=== PATIENT | male | born 1990 | race Caucasian/White ===

== ENCOUNTER 2021-02-15 11:38 | Emergency (ER) | payer OTHER ==
--- NOTE | 2021-02-15 11:40 | ERPHSYRPT ---
- History of Present Illness Time Seen by Provider: 02/15/21 11:40 Historian: patient Exam Limitations: no limitations Physician History: This is a 31-year-old white male who states he had a history of kidney stones in the past and presents with gross hematuria that started this morning. Patient began having some abdominal pain that is general in location and severe aching. The pain worsened this morning and the gross hematuria began this morning. Patient has no bleeding or clotting disorders. He is not on any anticoagulation therapy. He does not take aspirin or ibuprofen on a regular basis. He has had nausea and vomiting but no diarrhea. He is never had anything like this before. Timing/Duration: yesterday Quality: aching Abdominal Pain Onset Location: generalized abdomen Pain Radiation: no radiation Severity of Pain-Max: moderate Severity of Pain-Current: moderate Modifying Factors: Improves With: vomiting Associated Symptoms: nausea, vomiting, No chest pain, No fever/chills, No loss of appetite, No shortness of breath Previous symptoms: no prior history Allergies/Adverse Reactions: amoxicillin Allergy (Verified 02/15/21 11:45) Penicillins Allergy (Verified 02/15/21 11:45) Home Medications: Gabapentin 300 mg [Neurontin 300 mg] 1 tab PO DAILY 02/15/21 [History] Lorazepam 1 mg [Ativan 1 MG] 1 tab PO DAILY 02/15/21 [History] Travel Risk - International Travel Have you traveled outside of the country in past 3 weeks: No - Coronavirus Screening Are you exhibiting any of the following symptoms?: No Close contact with a COVID-19 positive Pt in past 14-21 Days: No - Review of Systems Constitutional: No Symptoms Eyes: No Symptoms Ears, Nose, & Throat: No Symptoms Respiratory: No Symptoms Cardiac: No Symptoms Abdominal/Gastrointestinal: Abdominal Pain, Nausea, Vomiting, No Diarrhea Genitourinary Symptoms: Hematuria Musculoskeletal: No Symptoms Skin: No Symptoms Neurological: No Symptoms Psychological: No Symptoms Endocrine: No Symptoms Hematologic/Lymphatic: No Symptoms Immunological/Allergic: No Symptoms All Other Systems: Reviewed and Negative - Past Medical History Pertinent Past Medical History: Yes - Past Surgical History Past Surgical History: Yes - Nursing Vital Signs Nursing Vital Signs: Initial Vital Signs Temperature 98.1 F 02/15/21 11:47 Pulse Rate 116 H 02/15/21 11:47 Respiratory Rate 18 02/15/21 11:47 Blood Pressure 156/97 02/15/21 11:47 O2 Sat by Pulse Oximetry 95 02/15/21 11:47 Pain Scale Pain Intensity 3 - Physical Exam General Appearance: mild distress, alert, anxiety Eye Exam: PERRL/EOMI, eyes nml inspection Ears, Nose, Throat Exam: normal ENT inspection, moist mucous membranes Neck Exam: normal inspection, non-tender, supple, full range of motion Respiratory Exam: normal breath sounds, lungs clear, airway intact, No chest tenderness, No respiratory distress Cardiovascular Exam: regular rate/rhythm, normal heart sounds, normal peripheral pulses Gastrointestinal/Abdomen Exam: soft, normal bowel sounds, tenderness, guarding, No rebound Rectal Exam: not done Back Exam: normal inspection, normal range of motion, No CVA tenderness, No vertebral tenderness Extremity Exam: normal inspection, normal range of motion, pelvis stable Neurologic Exam: alert, oriented x 3, cooperative, ip network architect II-XII nml as tested, normal mood/affect, nml cerebellar function, nml station & gait, sensation nml Skin Exam: normal color, warm, dry Lymphatic Exam: No adenopathy SpO2 Interpretation: normal O2 Delivery: Room Air - Course Nursing assessment & vital signs reviewed: Yes Ordered Tests: Active Orders 24 hr Category Date Time Status IV Insertion STAT Care 02/15/21 11:48 Active ABDOMEN AND PELVIS W/0 CONTRAS [CT] Stat Exams 02/15/21 11:48 Completed AMYLASE Stat Lab 02/15/21 11:50 Completed CBC W DIFF Stat Lab 02/15/21 11:50 Completed CMP Stat Lab 02/15/21 11:50 Completed CULTURE,URINE Stat Lab 02/15/21 11:53 Received LIPASE Stat Lab 02/15/21 11:50 Completed Lactic Acid Stat Lab 02/15/21 11:47 Completed UA W/RFX UR CULTURE Stat Lab 02/15/21 11:53 Completed Urine Triage Profile Stat Lab 02/15/21 11:53 Completed Medication Summary Discontinued Medications Generic Name Dose Route Start Last Admin Trade Name Freq PRN Reason Stop Dose Admin Hydromorphone HCl 1 mg 02/15/21 11:48 02/15/21 11:56 Hydromorphone 1 Mg/Ml Injection IV 02/15/21 11:49 1 mg STAT ONE Administration Hydromorphone HCl Confirm 02/15/21 11:54 Hydromorphone 1 Mg/Ml Injection Administered 02/15/21 11:55 Dose 1 mg .ROUTE .STK-MED ONE Sodium Chloride 1,000 mls @ 999 mls/hr 02/15/21 11:48 02/15/21 12:57 Sodium Chloride 0.9% 1000 Ml IV 02/15/21 12:48 Infused .Q1H1M STA Infusion Sodium Chloride Confirm 02/15/21 11:54 Sodium Chloride 0.9% 1000 Ml Administered 02/15/21 11:55 Dose 1,000 mls @ ud .ROUTE .STK-MED ONE Ketorolac Tromethamine 30 mg 02/15/21 12:54 02/15/21 12:56 Toradol 30 Mg Injection IV 02/15/21 12:55 30 mg STAT ONE Administration Ketorolac Tromethamine Confirm 02/15/21 12:55 Toradol 30 Mg Injection Administered 02/15/21 12:56 Dose 30 mg .ROUTE .STK-MED ONE Ondansetron HCl 4 mg 02/15/21 11:48 02/15/21 11:56 Zofran 4 Mg/2 Ml Vial IV 02/15/21 11:49 4 mg STAT ONE Administration Ondansetron HCl Confirm 02/15/21 11:54 Zofran 4 Mg/2 Ml Vial Administered 02/15/21 11:55 Dose 4 mg .ROUTE .STK-MED ONE Trimethoprim/Sulfamethoxazole 1 tab 02/15/21 13:11 02/15/21 13:14 Bactrim Ds Tablet PO 02/15/21 13:12 1 tab STAT ONE Administration Trimethoprim/Sulfamethoxazole Confirm 02/15/21 13:13 Bactrim Ds Tablet Administered 02/15/21 13:14 Dose 1 tab PO .STK-MED ONE Lab/Rad Data: Laboratory Result Diagrams 02/15/21 11:50 02/15/21 11:50 Laboratory Results 02/15/21 02/15/21 02/15/21 Range/Units 11:53 11:53 11:50 WBC (4.0-10.5) K/mm3 RBC (4.1-5.6) M/mm3 Hgb (12.5-18.0) gm/dl Hct (42-50) % MCV (78-100) fl MCH (26-32) pg MCHC (32-36) g/dl RDW (11.5-14.0) % Plt Count (150-450) K/mm3 MPV (7.5-11.0) fl Gran % (36.0-66.0) % Eos # (Auto) (0-0.5) Absolute Lymphs (auto) (1.0-4.6) Absolute Monos (auto) (0.0-1.3) Lymphocytes % (24.0-44.0) % Monocytes % (0.0-12.0) % Eosinophils % (0.00-5.0) % Basophils % (0.0-0.4) % Absolute Granulocytes (1.4-6.9) Basophils # (0-0.4) Sodium 139 (137-145) mmol/L Potassium 3.5 (3.5-5.1) mmol/L Chloride 100 (98-107) mmol/L Carbon Dioxide 29 (22-30) mmol/L Anion Gap 14.5 (5-15) MEQ/L BUN 10 (9-20) mg/dL Creatinine 0.80 (0.66-1.25) mg/dL Estimated GFR > 60.0 ML/MIN Glucose 117 H (74-106) mg/dL Lactic Acid (0.4-2.0) Calcium 10.0 (8.4-10.2) mg/dL Total Bilirubin 0.60 (0.2-1.3) mg/dL AST 25 (17-59) U/L ALT 19 (0-50) U/L Alkaline Phosphatase 64 (38-126) U/L Serum Total Protein 7.9 (6.3-8.2) g/dL Albumin 5.0 (3.5-5.0) g/dL Amylase 59 (30-110) U/L Lipase 22 L (23-300) U/L Urine Color BROWN (YELLOW) Urine Appearance CLOUDY (CLEAR) Urine pH 6.0 (5-6) Ur Specific Reyno 1.018 (1.005-1.025) Urine Protein 100 (Negative) Urine Ketones NEGATIVE (NEGATIVE) Urine Blood LARGE (0-5) Lee/ul Urine Nitrite NEGATIVE (NEGATIVE) Urine Bilirubin NEGATIVE (NEGATIVE) Urine Urobilinogen 2 (0-1) mg/dL Ur Leukocyte Esterase NEGATIVE (NEGATIVE) Urine WBC (Auto) >100 (0-5) /HPF Urine RBC (Auto) >101 (0-2) /HPF Urine Bacteria (Auto) MODERATE (NEGATIVE) /HPF Urine Mucus (Auto) MANY (NEGATIVE) /HPF Urine Culture Reflexed YES (NO) Urine Glucose NEGATIVE (NEGATIVE) mg/dL Urine Opiates Level POSITIVE (NEGATIVE) Ur Methadone NEGATIVE (NEGATIVE) Urine Barbiturates NEGATIVE (NEGATIVE) Ur Phencyclidine (PCP) NEGATIVE (NEGATIVE) Urine Amphetamine POSITIVE (NEGATIVE) U Benzodiazepine Level POSITIVE (NEGATIVE) Urine Cocaine NEGATIVE (NEGATIVE) Urine Marijuana (THC) NEGATIVE (NEGATIVE) 02/15/21 02/15/21 Range/Units 11:50 11:47 WBC 13.0 H (4.0-10.5) K/mm3 RBC 6.03 H (4.1-5.6) M/mm3 Hgb 18.3 H (12.5-18.0) gm/dl Hct 53.5 H (42-50) % MCV 88.7 (78-100) fl MCH 30.3 (26-32) pg MCHC 34.2 (32-36) g/dl RDW 13.3 (11.5-14.0) % Plt Count 275 (150-450) K/mm3 MPV 10.1 (7.5-11.0) fl Gran % 67.0 H (36.0-66.0) % Eos # (Auto) 0.13 (0-0.5) Absolute Lymphs (auto) 2.77 (1.0-4.6) Absolute Monos (auto) 1.33 H (0.0-1.3) Lymphocytes % 21.3 L (24.0-44.0) % Monocytes % 10.2 (0.0-12.0) % Eosinophils % 1.0 (0.00-5.0) % Basophils % 0.5 (0.0-0.4) % Absolute Granulocytes 8.72 H (1.4-6.9) Basophils # 0.06 (0-0.4) Sodium (137-145) mmol/L Potassium (3.5-5.1) mmol/L Chloride (98-107) mmol/L Carbon Dioxide (22-30) mmol/L Anion Gap (5-15) MEQ/L BUN (9-20) mg/dL Creatinine (0.66-1.25) mg/dL Estimated GFR ML/MIN Glucose (74-106) mg/dL Lactic Acid 1.1 (0.4-2.0) Calcium (8.4-10.2) mg/dL Total Bilirubin (0.2-1.3) mg/dL AST (17-59) U/L ALT (0-50) U/L Alkaline Phosphatase (38-126) U/L Serum Total Protein (6.3-8.2) g/dL Albumin (3.5-5.0) g/dL Amylase (30-110) U/L Lipase (23-300) U/L Urine Color (YELLOW) Urine Appearance (CLEAR) Urine pH (5-6) Ur Specific Reyno (1.005-1.025) Urine Protein (Negative) Urine Ketones (NEGATIVE) Urine Blood (0-5) Lee/ul Urine Nitrite (NEGATIVE) Urine Bilirubin (NEGATIVE) Urine Urobilinogen (0-1) mg/dL Ur Leukocyte Esterase (NEGATIVE) Urine WBC (Auto) (0-5) /HPF Urine RBC (Auto) (0-2) /HPF Urine Bacteria (Auto) (NEGATIVE) /HPF Urine Mucus (Auto) (NEGATIVE) /HPF Urine Culture Reflexed (NO) Urine Glucose (NEGATIVE) mg/dL Urine Opiates Level (NEGATIVE) Ur Methadone (NEGATIVE) Urine Barbiturates (NEGATIVE) Ur Phencyclidine (PCP) (NEGATIVE) Urine Amphetamine (NEGATIVE) U Benzodiazepine Level (NEGATIVE) Urine Cocaine (NEGATIVE) Urine Marijuana (THC) (NEGATIVE) - Progress Progress: improved, pain not gone completely, re-examined Progress Note: 02/15/21 13:14 CAT scan of the abdomen pelvis without contrast shows mild hydronephrosis on the left side with a 1 cm UPJ calculus causing partial obstruction. 02/15/21 13:26 Patient was informed that his urine showed opiates (the specimen was taken before we gave him any opiates), benzodiazepines (patient is prescribed this) and methamphetamines. Patient only admits to marijuana use. Medical decision making: This patient has a distal left ureteral calculus. There is mild hydronephrosis present. However the size of the calculus measured 1 cm. There is a concern he may not pass this calculus without intervention from a urologist patient has seen Dr. Rosario out of [facility]. We called Dr. Rosario's office and this patient can be seen today at 3 PM. Counseled pt/family regarding: lab results, diagnosis, need for follow-up, rad results - Departure Departure Disposition: Home Clinical Impression: Left ureteral calculus, UTI (urinary tract infection) Condition: Stable Critical Care Time: No Referrals: LILIANA SMITH [Primary Care Provider] - Additional Instructions: Drink plenty of fluids. Take your medication as prescribed. Follow-up with your primary care physician and urologist for further management. Prescriptions: Ondansetron ODT 4 MG [Zofran Odt 4 mg] 4 mg PO Q6H PRN PRN #10 tab.rapdis PRN Reason: Vomiting Hydrocodone/APAP 5/325 [[place] 5/325 mg] 1 each PO Q8H PRN PRN #6 tablet MDD 3 PRN Reason: Pain Smz/Tmp Ds Tablet [Bactrim Ds Tablet] 1 udtab PO BID #14 tablet
[2021-02-15] MEDS ORDERED: Zofran 4 MG/2 ML VIAL IV ONE (11:48)
[2021-02-15] MEDS ORDERED: Hydromorphone 1 mg/ml Injection IV ONE (11:48)
[2021-02-15] MEDS ORDERED: Sodium Chloride 0.9% 1000 ML 1,000 ML IV STA (11:48)
[2021-02-15] MEDS ORDERED: Hydromorphone 1 mg/ml Injection ONE (11:54)
[2021-02-15] MEDS ORDERED: Zofran 4 MG/2 ML VIAL ONE (11:54)
[2021-02-15] MEDS ORDERED: Sodium Chloride 0.9% 1000 ML 1,000 ML ONE (11:54)
[2021-02-15 12:00] LABS: Absolute Neutrophil Ct (ANC) 8.72 (1.4-6.9); BASOPHIL % 0.5 % (0.0-0.4); Basophil (Absolute #) 0.06 (0-0.4); Eosinophil (Absolute #) 0.13 (0-0.5); Hematocrit 53.5 % (42-50); Hemoglobin 18.3 gm/dl (12.5-18.0); Lymphocyte (Absolute #) 2.77 (1.0-4.6); Lymphocytes % 21.3 % (24.0-44.0); Mean Cell Volume 88.7 fl (78-100); Mean Corpuscular Hemoglobin 30.3 pg (26-32); Mean Corpuscular Hgb Concent. 34.2 g/dl (32-36); Mean Platelet Volume 10.1 fl (7.5-11.0); Monocyte (Absolute #) 1.33 (0.0-1.3); Monocytes % 10.2 % (0.0-12.0); Platelet Count 275 K/mm3 (150-450); Red Blood Count 6.03 M/mm3 (4.1-5.6); Red Cell Distribution Width 13.3 % (11.5-14.0)
[2021-02-15 12:19] LABS: ALKALINE PHOSPHATASE 64 U/L (38-126); AMYLASE 59 U/L (30-110); ANION GAP 14.5 MEQ/L (5-15); BLOOD UREA NITROGEN 10 mg/dL (9-20); CHLORIDE 100 mmol/L (98-107); Carbon Dioxide 29 mmol/L (22-30); EST GLOMERULAR FILTRATION RATE > 60.0 ML/MIN; Glucose 117 mg/dL (74-106); LIPASE 22 U/L (23-300); Potassium 3.5 mmol/L (3.5-5.1); SGOT/AST 25 U/L (17-59); SGPT/ALT 19 U/L (0-50); SODIUM 139 mmol/L (137-145); Total Protein 7.9 g/dL (6.3-8.2)
[2021-02-15 12:19] LABS: Appearance CLOUDY (CLEAR); Bacteria MODERATE /HPF (NEGATIVE); Bilirubin NEGATIVE (NEGATIVE); Blood LARGE Ery/ul (0-5); Glucose NEGATIVE (NEGATIVE); Ketones NEGATIVE (NEGATIVE); Leukocyte Esterase NEGATIVE (NEGATIVE); Mucus MANY /HPF (NEGATIVE); Nitrite NEGATIVE (NEGATIVE); Protein,Urine Dip 100 (Negative); Specific Gravity 1.018 (1.005-1.025); Urobilinogen 2 mg/dL (0-1); WBC >100 /HPF (0-5)
[2021-02-15 12:24] LABS: RBC >101 /HPF (0-2)
[2021-02-15 12:33] LABS: Amphetamine,Urine POSITIVE (NEGATIVE); Barbiturate,Urine NEGATIVE (NEGATIVE); Benzodiazepine,Urine POSITIVE (NEGATIVE); Cocaine,Urine NEGATIVE (NEGATIVE); Methadone,Urine NEGATIVE (NEGATIVE); Opiate,Urine POSITIVE (NEGATIVE); PCP,Urine NEGATIVE (NEGATIVE); THC,Urine NEGATIVE (NEGATIVE)
--- NOTE | 2021-02-15 12:42 | XRAY ---
Indication: Right abdomen/flank pain. Hematuria. Multiple contiguous images obtained through the abdomen and pelvis without contrast using renal stone protocol. Comparison: None Lung bases demonstrates a few tiny right middle and left lower lobe calcified granulomas. No infiltrate or effusion. Heart not enlarged. There is a 1 cm left UPJ calculus with mild hydronephrosis. Additional 1 left renal and 2 right renal punctate calculi. Noncontrasted stomach and bowel loops appear nonobstructed. Normal appendix. No free fluid/air. Remaining liver, gallbladder, pancreas, spleen, adrenal glands, kidneys, ureters, bladder, and aorta are unremarkable for noncontrast exam. Osseous structures intact. No ventral or inguinal hernias. Impression: 1. 1 cm left UPJ calculus producing partial obstruction. Additional bilateral renal micro-calculi. 2. Incidental old granulomatous disease.
[2021-02-15] MEDS ORDERED: TORAdol 30 mg Injection IV ONE (12:54)
[2021-02-15] MEDS ORDERED: TORAdol 30 mg Injection ONE (12:55)
[2021-02-15] MEDS ORDERED: BACTRIM DS TABLET PO ONE ×2 (13:11→13:13)
[2021-02-15 13:17] VITALS: BP 132/74; PULSE 92; O2SAT 97
== END 2021-02-15 13:39 | disposition home or self-care (01) ==
LOC: ED 11:38
DX: N13.2 Hydronephrosis with renal and ureteral calculous obstruction (principal); N39.0 Urinary tract infection, site not specified
CPT/HCPCS: 36000; 36415; 74176; 80053; 80307; 81001; 82150; 83605; 83690; 85025; 87086; 96360; 96374; 96375; 99284; J1170; J1885; J2405; A9270-GY

== ENCOUNTER 2022-11-01 12:53 | Emergency (ER) | payer OTHER ==
[2022-11-01] MEDS ORDERED: Sodium Chloride 0.9% 1000 ML 1,000 ML IV STA ×2 (13:08→14:51)
[2022-11-01] MEDS ORDERED: TORAdol 30 mg Injection IV ONE (13:08)
[2022-11-01] MEDS ORDERED: Zofran 4 MG/2 ML VIAL IV ONE (13:08)
[2022-11-01] MEDS ORDERED: Sodium Chloride 0.9% 1000 ML 1,000 ML ONE ×2 (13:11→14:53)
[2022-11-01] MEDS ORDERED: Zofran 4 MG/2 ML VIAL ONE (13:11)
[2022-11-01] MEDS ORDERED: TORAdol 30 mg Injection ONE (13:11)
[2022-11-01 13:31] LABS: Absolute Neutrophil Ct (ANC) 10.52 x10^3/uL (1.4-6.9); BASOPHIL % 0.5 % (0.0-0.4); Basophil (Absolute #) 0.07 x10^3/uL (0-0.4); Eosinophil % 0.4 % (0.00-5.0); Eosinophil (Absolute #) 0.05 x10^3/uL (0-0.5); Hematocrit 48.8 % (42-50); Hemoglobin 17.2 g/dL (12.5-18.0); IMMATURE GRAN # 0.05 x10^3u/L (0.00-0.03); IMMATURE GRAN % 0.4 % (0.00-0.4); Lymphocyte (Absolute #) 1.83 x10^3/uL (1.0-4.6); Lymphocytes % 13.4 % (24.0-44.0); Mean Corpuscular Hgb Concent. 35.2 g/dL (32-36); Mean Platelet Volume 10.3 fL (7.5-11.0); Monocyte (Absolute #) 1.11 x10^3/uL (0.0-1.3); Monocytes % 8.1 % (0.0-12.0); Neutrophil % 77.2 % (36.0-66.0); Platelet Count 332 x10^3/uL (150-450); Red Blood Count 5.74 x10^6/uL (4.1-5.6); Red Cell Distribution Width 11.8 % (11.5-14.0); White Blood Count 13.6 x10^3/uL (4.0-10.5)
[2022-11-01 13:53] LABS: ALBUMIN 5.1 g/dL (3.5-5.0); ALKALINE PHOSPHATASE 63 U/L (38-126); ANION GAP 17.9 MEQ/L (5-15); BLOOD UREA NITROGEN 7 mg/dL (9-20); CHLORIDE 99 mmol/L (98-107); Carbon Dioxide 24 mmol/L (22-30); Creatinine 1 0.68 mg/dL (0.66-1.25); EST GLOMERULAR FILTRATION RATE > 60.0 ML/MIN; Glucose 118 mg/dL (74-106); LIPASE 37 U/L (23-300); Potassium 3.5 mmol/L (3.5-5.1); SGOT/AST 28 U/L (17-59); SGPT/ALT 18 U/L (0-50); SODIUM 138 mmol/L (137-145); Total Protein 7.9 g/dL (6.3-8.2)
--- NOTE | 2022-11-01 14:32 | XRAY ---
Indication: Left flank pain. History of kidney stones. Multiple contiguous axial images obtained through the abdomen and pelvis without contrast using renal stone protocol. Comparison: February 15, 2021 Lung bases again demonstrates a few calcified granulomas bilaterally. New mild bibasilar dependent atelectasis. Heart not enlarged. Posterior urinary bladder demonstrates new 3-4 mm midline calculus. Mild left sided hydronephrosis, mild left renal edema, and minimal left hydroureter favors recent passage of said calculus. Right kidney demonstrates 2 nonobstructing micro-calculi, largest 4 mm. Noncontrasted stomach and bowel loops nonobstructed with normal appendix. No free fluid/air. Remaining liver, gallbladder, pancreas, spleen, adrenal glands, kidneys, ureters, bladder, and aorta are unremarkable for noncontrast exam. Osseous structures intact. Impression: New 3-4 mm urinary bladder calculus. Left-sided hydronephrosis/hydroureter favors recent passage of calculus. 2 nonobstructing right renal micro-calculi.
--- NOTE | 2022-11-01 14:45 | ERPHSYRPT ---
- History of Present Illness Time Seen by Provider: 11/01/22 14:53 Historian: patient Exam Limitations: no limitations Patient Subjective Stated Complaint: pt here abd and flank pain to left side since 0830 this am . has not had bm for 2 weeks not Triage Nursing Assessment: pt alert, arrived per wc ,moaning and yelling out in pain holding left side of abd . uncooperative at times. unable to get a b/p, pt will not hold still. abd soft Physician History: Patient is a 32-year-old male presents to our ED for evaluation of left flank pain. Patient had acute onset of left flank pain started this morning at 8:30 AM. Pain has been ongoing. Pain described as an ache that is localized. Pain tends to radiate down to the groin area. No trauma. No fever. Patient currently on Suboxone. Patient states he has not had a bowel movement in 2 weeks. Symptoms are severe in intensity. No specific worsening improving fac tors. Patient denies history of the same. He voices no other complaints or concerns at this time. Portions of this note were created with voice recognition technology. There may be grammatical, spelling, punctuation or sound alike errors Timing/Duration: today Activities at Onset: none Quality: aching Abdominal Pain Onset Location: flank (Left flank) Pain Radiation: other (Pain radiates from left flank to left groin) Severity of Pain-Max: moderate Severity of Pain-Current: mild Modifying Factors: Improves With: nothing Associated Symptoms: nausea, vomiting Previous symptoms: no prior history Allergies/Adverse Reactions: amoxicillin Allergy (Verified 11/01/22 13:07) Penicillins Allergy (Verified 11/01/22 13:07) Home Medications: Buprenorphine HCl/Naloxone HCl [Buprenorphine-Nalox 8-2 mg Tab] 1 ea DAILY 11/01/22 [History] Quetiapine Fumarate 25 mg [Seroquel 25 MG] 25 mg PO DAILY 11/01/22 [History] Trazodone HCl 150 mg PO DAILY 11/01/22 [History] Hx Tetanus, Diphtheria Vaccination/Date Given: Yes Hx Influenza Vaccination/Date Given: No Hx Pneumococcal Vaccination/Date Given: No Immunizations Up to Date: Yes Travel Risk - International Travel Have you traveled outside of the country in past 3 weeks: No - Coronavirus Screening Are you exhibiting any of the following symptoms?: No Close contact with a COVID-19 positive Pt in past 14-21 Days: No - Vaccine Status Have you recieved a Covid-19 vaccination: No - Review of Systems Constitutional: No Symptoms, No Fever, No Chills Eyes: No Symptoms Ears, Nose, & Throat: No Symptoms Respiratory: No Symptoms, No Cough, No Dyspnea Cardiac: No Symptoms, No Chest Pain, No Edema, No Syncope Abdominal/Gastrointestinal: No Symptoms, No Abdominal Pain, No Nausea, No Vomiting, No Diarrhea Genitourinary Symptoms: No Symptoms, No Dysuria Musculoskeletal: No Symptoms, No Back Pain, No Neck Pain Skin: No Symptoms, No Rash Neurological: No Symptoms, No Dizziness, No Focal Weakness, No Sensory Changes Psychological: No Symptoms Endocrine: No Symptoms Hematologic/Lymphatic: No Symptoms Immunological/Allergic: No Symptoms All Other Systems: Reviewed and Negative - Past Medical History Pertinent Past Medical History: Yes Neurological History: No Pertinent History ENT History: No Pertinent History Cardiac History: No Pertinent History Respiratory History: No Pertinent History Endocrine Medical History: No Pertinent History Musculoskeletal History: No Pertinent History GI Medical History: No Pertinent History History: No Pertinent History Psycho-Social History: No Pertinent History Male Reproductive Disorders: No Pertinent History Other Medical History: hx of kidney stones - Past Surgical History Past Surgical History: Yes Neuro Surgical History: Other Cardiac: No Pertinent History Respiratory: No Pertinent History Gastrointestinal: No Pertinent History Genitourinary: No Pertinent History Musculoskeletal: No Pertinent History Male Surgical History: No Pertinent History Other Surgical History: brain surgery at 2 - Social History Smoking Status: Current every day smoker How long have you smoked: years Exposure to second hand smoke: Yes Drug Use: marijuana Patient Lives Alone: No - Nursing Vital Signs Nursing Vital Signs: Initial Vital Signs Temperature 96.4 F 11/01/22 13:10 Pulse Rate 61 11/01/22 13:10 Respiratory Rate 20 11/01/22 13:10 O2 Sat by Pulse Oximetry 95 11/01/22 13:10 Pain Scale Pain Intensity 7 - Physical Exam General Appearance: no apparent distress, alert Eye Exam: PERRL/EOMI, eyes nml inspection Ears, Nose, Throat Exam: normal ENT inspection, TMs normal, pharynx normal, moist mucous membranes Neck Exam: normal inspection, non-tender, supple, full range of motion Respiratory Exam: normal breath sounds, lungs clear, airway intact, No respiratory distress Cardiovascular Exam: regular rate/rhythm, normal heart sounds, normal peripheral pulses Gastrointestinal/Abdomen Exam: soft, normal bowel sounds, tenderness (Left flank pain. Left CVA tenderness.), No mass Back Exam: normal inspection, normal range of motion, No CVA tenderness, No vertebral tenderness Extremity Exam: normal inspection, normal range of motion, pelvis stable Neurologic Exam: alert, oriented x 3, cooperative, normal mood/affect, nml cerebellar function, sensation nml, No motor deficits Skin Exam: normal color, warm, dry SpO2 Interpretation: normal SpO2: 95 O2 Delivery: Room Air - Course Nursing assessment & vital signs reviewed: Yes - CT Exams Abdomen/Pelvis CT Interpretation: Tele-radiologist Report (Lung granuloma, urinary bladder calculus measuring 3 to 4 mm, left hydronephrosis, left hydroureter, left renal edema, right nephrolithiasis) Ordered Tests: Active Orders 24 hr Category Date Time Status IV Insertion STAT Care 11/01/22 13:08 Active NPO (ED) STAT Care 11/01/22 13:08 Active ABDOMEN AND PELVIS W/0 CONTRAS [CT] Stat Exams 11/01/22 13:09 Completed CBC W DIFF Stat Lab 11/01/22 13:08 Completed CMP Stat Lab 11/01/22 13:08 Completed CMP Stat Lab 11/01/22 15:06 Completed CULTURE,URINE Stat Lab 11/01/22 15:00 Received LIPASE Stat Lab 11/01/22 13:08 Completed Lactic Acid Stat Lab 11/01/22 13:08 Completed Lactic Acid Stat Lab 11/01/22 15:10 Completed Lactic Acid Stat Lab 11/01/22 15:29 Received UA W/RFX UR CULTURE Stat Lab 11/01/22 15:00 Completed Urine Triage Profile Stat Lab 11/01/22 15:00 Completed Medication Summary Discontinued Medications Generic Name Dose Route Start Last Admin Trade Name Freq PRN Reason Stop Dose Admin Sodium Chloride 1,000 mls @ 999 mls/hr 11/01/22 13:08 11/01/22 14:37 Sodium Chloride 0.9% 1000 Ml IV 11/01/22 14:08 Infused .Q1H1M STA Infusion Sodium Chloride Confirm 11/01/22 13:11 Sodium Chloride 0.9% 1000 Ml Administered 11/01/22 13:12 Dose 1,000 mls @ ud .ROUTE .STK-MED ONE Sodium Chloride 1,000 mls @ 999 mls/hr 11/01/22 14:51 11/01/22 15:57 Sodium Chloride 0.9% 1000 Ml IV 11/01/22 15:51 Infused .Q1H1M STA Infusion Sodium Chloride Confirm 11/01/22 14:53 Sodium Chloride 0.9% 1000 Ml Administered 11/01/22 14:54 Dose 1,000 mls @ ud .ROUTE .STK-MED ONE Ketamine HCl 7 mg 11/01/22 15:02 11/01/22 15:06 Ketamine Hcl 50 Mg/Ml IV 11/01/22 15:03 7 mg STAT ONE Administration Ketorolac Tromethamine 30 mg 11/01/22 13:08 11/01/22 13:13 Ketorolac Tromethamine 30 Mg/Ml Inj IV 11/01/22 13:09 30 mg STAT ONE Administration Ketorolac Tromethamine Confirm 11/01/22 13:11 Ketorolac Tromethamine 30 Mg/Ml Inj Administered 11/01/22 13:12 Dose 30 mg .ROUTE .STK-MED ONE Ondansetron HCl 4 mg 11/01/22 13:08 11/01/22 13:13 Ondansetron Hcl 4 Mg/2 Ml Vial IV 11/01/22 13:09 4 mg STAT ONE Administration Ondansetron HCl Confirm 11/01/22 13:11 Ondansetron Hcl 4 Mg/2 Ml Vial Administered 11/01/22 13:12 Dose 4 mg .ROUTE .STK-MED ONE Lab/Rad Data: Laboratory Result Diagrams 11/01/22 13:08 11/01/22 15:06 Laboratory Results 11/01/22 11/01/22 11/01/22 Range/Units 15:10 15:06 15:00 WBC (4.0-10.5) x10^3/uL RBC (4.1-5.6) x10^6/uL Hgb (12.5-18.0) g/dL Hct (42-50) % MCV (78-100) fL MCH (26-32) pg MCHC (32-36) g/dL RDW (11.5-14.0) % Plt Count (150-450) x10^3/uL MPV (7.5-11.0) fL Gran % (36.0-66.0) % Immature Gran % (Auto) (0.00-0.4) % Nucleat RBC Rel Count (0.00-0.1) % Eos # (Auto) (0-0.5) x10^3/uL Immature Gran # (Auto) (0.00-0.03) x10^3u/L Absolute Lymphs (auto) (1.0-4.6) x10^3/uL Absolute Monos (auto) (0.0-1.3) x10^3/uL Absolute Nucleated RBC (0.00-0.01) x10^3u/L Lymphocytes % (24.0-44.0) % Monocytes % (0.0-12.0) % Eosinophils % (0.00-5.0) % Basophils % (0.0-0.4) % Absolute Granulocytes (1.4-6.9) x10^3/uL Basophils # (0-0.4) x10^3/uL Sodium 139 (137-145) mmol/L Potassium 3.9 (3.5-5.1) mmol/L Chloride 104 (98-107) mmol/L Carbon Dioxide 25 (22-30) mmol/L Anion Gap 14.2 (5-15) MEQ/L BUN 6 L (9-20) mg/dL Creatinine 0.63 L (0.66-1.25) mg/dL Estimated GFR > 60.0 ML/MIN Glucose 102 (74-106) mg/dL Lactic Acid 1.0 (0.4-2.0) Calcium 8.8 (8.4-10.2) mg/dL Total Bilirubin 0.70 (0.2-1.3) mg/dL AST 24 (17-59) U/L ALT 14 (0-50) U/L Alkaline Phosphatase 49 (38-126) U/L Serum Total Protein 6.6 (6.3-8.2) g/dL Albumin 4.3 (3.5-5.0) g/dL Lipase (23-300) U/L Urine Color (Yellow) Urine Appearance (Clear) Urine pH (4.6-8.0) Ur Specific [place] (1.005-1.030) Urine Protein (Negative) Urine Glucose (UA) (Negative) mg/dL Urine Ketones (Negative) Urine Blood (Negative) Urine Nitrite (Negative) Urine Bilirubin (Negative) Urine Urobilinogen (0.2) mg/dL Ur Leukocyte Esterase (Negative) U Hyaline Cast (Auto) (0-2) /LPF Urine Microscopic RBC (0-5) /HPF Urine Microscopic WBC (0-5) /HPF Ur Epithelial Cells (None Seen) /HPF Urine Bacteria (None Seen) /HPF Urine Sperm (None Seen) /HPF Urine Culture Reflexed (NO) Urine Opiates Level NEGATIVE (NEGATIVE) Ur Methadone NEGATIVE (NEGATIVE) Urine Barbiturates NEGATIVE (NEGATIVE) Ur Phencyclidine (PCP) NEGATIVE (NEGATIVE) Urine Amphetamine POSITIVE (NEGATIVE) U Benzodiazepine Level NEGATIVE (NEGATIVE) Urine Cocaine NEGATIVE (NEGATIVE) Urine Marijuana (THC) NEGATIVE (NEGATIVE) 11/01/22 11/01/22 11/01/22 Range/Units 15:00 13:08 13:08 WBC (4.0-10.5) x10^3/uL RBC (4.1-5.6) x10^6/uL Hgb (12.5-18.0) g/dL Hct (42-50) % MCV (78-100) fL MCH (26-32) pg MCHC (32-36) g/dL RDW (11.5-14.0) % Plt Count (150-450) x10^3/uL MPV (7.5-11.0) fL Gran % (36.0-66.0) % Immature Gran % (Auto) (0.00-0.4) % Nucleat RBC Rel Count (0.00-0.1) % Eos # (Auto) (0-0.5) x10^3/uL Immature Gran # (Auto) (0.00-0.03) x10^3u/L Absolute Lymphs (auto) (1.0-4.6) x10^3/uL Absolute Monos (auto) (0.0-1.3) x10^3/uL Absolute Nucleated RBC (0.00-0.01) x10^3u/L Lymphocytes % (24.0-44.0) % Monocytes % (0.0-12.0) % Eosinophils % (0.00-5.0) % Basophils % (0.0-0.4) % Absolute Granulocytes (1.4-6.9) x10^3/uL Basophils # (0-0.4) x10^3/uL Sodium 138 (137-145) mmol/L Potassium 3.5 (3.5-5.1) mmol/L Chloride 99 (98-107) mmol/L Carbon Dioxide 24 (22-30) mmol/L Anion Gap 17.9 H (5-15) MEQ/L BUN 7 L (9-20) mg/dL Creatinine 0.68 (0.66-1.25) mg/dL Estimated GFR > 60.0 ML/MIN Glucose 118 H (74-106) mg/dL Lactic Acid 2.4 H (0.4-2.0) Calcium 10.0 (8.4-10.2) mg/dL Total Bilirubin 0.70 (0.2-1.3) mg/dL AST 28 (17-59) U/L ALT 18 (0-50) U/L Alkaline Phosphatase 63 (38-126) U/L Serum Total Protein 7.9 (6.3-8.2) g/dL Albumin 5.1 H (3.5-5.0) g/dL Lipase 37 (23-300) U/L Urine Color Yellow (Yellow) Urine Appearance Cloudy A (Clear) Urine pH 6.5 (4.6-8.0) Ur Specific [place] 1.010 (1.005-1.030) Urine Protein 30 (Negative) Urine Glucose (UA) Negative (Negative) mg/dL Urine Ketones 80 A (Negative) Urine Blood Large A (Negative) Urine Nitrite Negative (Negative) Urine Bilirubin Negative (Negative) Urine Urobilinogen 1.0 A (0.2) mg/dL Ur Leukocyte Esterase Negative (Negative) U Hyaline Cast (Auto) 3-5 A (0-2) /LPF Urine Microscopic RBC 21-50 A (0-5) /HPF Urine Microscopic WBC 0-2 (0-5) /HPF Ur Epithelial Cells None Seen (None Seen) /HPF Urine Bacteria None Seen (None Seen) /HPF Urine Sperm Moderate A (None Seen) /HPF Urine Culture Reflexed YES (NO) Urine Opiates Level (NEGATIVE) Ur Methadone (NEGATIVE) Urine Barbiturates (NEGATIVE) Ur Phencyclidine (PCP) (NEGATIVE) Urine Amphetamine (NEGATIVE) U Benzodiazepine Level (NEGATIVE) Urine Cocaine (NEGATIVE) Urine Marijuana (THC) (NEGATIVE) 11/01/22 Range/Units 13:08 WBC 13.6 H (4.0-10.5) x10^3/uL RBC 5.74 H (4.1-5.6) x10^6/uL Hgb 17.2 (12.5-18.0) g/dL Hct 48.8 (42-50) % MCV 85.0 (78-100) fL MCH 30.0 (26-32) pg MCHC 35.2 (32-36) g/dL RDW 11.8 (11.5-14.0) % Plt Count 332 (150-450) x10^3/uL MPV 10.3 (7.5-11.0) fL Gran % 77.2 H (36.0-66.0) % Immature Gran % (Auto) 0.4 (0.00-0.4) % Nucleat RBC Rel Count 0.0 (0.00-0.1) % Eos # (Auto) 0.05 (0-0.5) x10^3/uL Immature Gran # (Auto) 0.05 H (0.00-0.03) x10^3u/L Absolute Lymphs (auto) 1.83 (1.0-4.6) x10^3/uL Absolute Monos (auto) 1.11 (0.0-1.3) x10^3/uL Absolute Nucleated RBC 0.00 (0.00-0.01) x10^3u/L Lymphocytes % 13.4 L (24.0-44.0) % Monocytes % 8.1 (0.0-12.0) % Eosinophils % 0.4 (0.00-5.0) % Basophils % 0.5 (0.0-0.4) % Absolute Granulocytes 10.52 H (1.4-6.9) x10^3/uL Basophils # 0.07 (0-0.4) x10^3/uL Sodium (137-145) mmol/L Potassium (3.5-5.1) mmol/L Chloride (98-107) mmol/L Carbon Dioxide (22-30) mmol/L Anion Gap (5-15) MEQ/L BUN (9-20) mg/dL Creatinine (0.66-1.25) mg/dL Estimated GFR ML/MIN Glucose (74-106) mg/dL Lactic Acid (0.4-2.0) Calcium (8.4-10.2) mg/dL Total Bilirubin (0.2-1.3) mg/dL AST (17-59) U/L ALT (0-50) U/L Alkaline Phosphatase (38-126) U/L Serum Total Protein (6.3-8.2) g/dL Albumin (3.5-5.0) g/dL Lipase (23-300) U/L Urine Color (Yellow) Urine Appearance (Clear) Urine pH (4.6-8.0) Ur Specific [place] (1.005-1.030) Urine Protein (Negative) Urine Glucose (UA) (Negative) mg/dL Urine Ketones (Negative) Urine Blood (Negative) Urine Nitrite (Negative) Urine Bilirubin (Negative) Urine Urobilinogen (0.2) mg/dL Ur Leukocyte Esterase (Negative) U Hyaline Cast (Auto) (0-2) /LPF Urine Microscopic RBC (0-5) /HPF Urine Microscopic WBC (0-5) /HPF Ur Epithelial Cells (None Seen) /HPF Urine Bacteria (None Seen) /HPF Urine Sperm (None Seen) /HPF Urine Culture Reflexed (NO) Urine Opiates Level (NEGATIVE) Ur Methadone (NEGATIVE) Urine Barbiturates (NEGATIVE) Ur Phencyclidine (PCP) (NEGATIVE) Urine Amphetamine (NEGATIVE) U Benzodiazepine Level (NEGATIVE) Urine Cocaine (NEGATIVE) Urine Marijuana (THC) (NEGATIVE) - Progress Progress: improved Progress Note: Patient 32-year-old male presents emergency department for evaluation of left flank pain. Patient has a history of kidney stones. Patient presenting complaint is acute in onset. Complexity of complaint is moderate. Review of system reveals left flank pain and left CVA tenderness. Tests ordered include CT abdomen pelvis, CBC, CMP, lipase, lactic acid, stone an alysis, urinalysis, urine triage. Chemistry revealed a elevated anion gap acidosis. A repeat was performed to assure normalization. Lactic acid was elevated on the initial draw. A repeat was performed to assure normalization. Patient received Toradol for pain control. Patient then received ketamine for pain control. Patient is on Suboxone so we avoided opiate as a source for pain control. Patient received Zofran for nausea and vomiting. Patient received 2 L of IV fluids. CT scan revealed passage of a 3.4 mm stone. Patient had left-sided hydronephrosis left- sided hydroureter. Stone was sitting in patient's bladder. While in our ED patient passed the stone. Were able to collect the stone and forwarded to the lab/pathology for stone analysis. Results of our testing was used for medical decision making. Patient reassessed. He feels well. Patient ready for discharge. A pres cription for Toradol was forwarded to patient's pharmacy. Patient agrees to follow-up with his primary care doctor within 48 hours for reevaluation. Level of the M service provided was moderate. Complexity of the problem addressed was moderate. Complexity of data reviewed and analyzed is moderate. Risk of complication and/or risk of morbidity/mortality of patient management was moderate. No critical care time. Patient served as independent historian. Time spent during discharge is approximately 10 to 15 minutes. Patient voices no other complaints or concerns this time. Patient requesting discharge Portions of this note were created with voice recognition technology. There may be grammatical, spelling, punctuation or sound alike errors 11/01/22 16:53 Counseled pt/family regarding: lab results, diagnosis, need for follow-up, rad results - Departure Departure Disposition: Home Clinical Impression: Leukocytosis, High anion gap metabolic acidosis, Lactic acidosis, Nephrolithiasis, Hydroureter, Hydronephrosis, Urinary bladder calculus, Left renal edema, Amphetamine use Condition: Stable Critical Care Time: No Referrals: LILIANA SMITH [Primary Care Provider] - Follow up/PCP as directed Additional Instructions: Discharge/Care Plan [place] [place] was seen on 11/01/22 in the Emergency Room. The patient was counseled regarding Diagnosis,Lab results, Imaging studies, need for follow up and when to return to the Emergency Room. Prescriptions given: Discharge Note I have spoken with the patient and/or caregivers. I have explained the patient's condition, diagnosis and treatment plan based on the information available to me at this time. I have answered the patient's and/or caregiver's questions and addressed any concerns. The patient and/or caregivers have as good understanding of the patient's diagnosis, condition and treatment plan as can be expected at this point. The vital signs have been stable. The patient's condition is stable and appropriate for discharge from the emergency department. The patient will pursue further outpatient evaluation with the primary care physician or other designated or consulting physician as outlined in the discharge instructions. The patient and/or caregivers are agreeable to this plan of care and follow-up instructions have been explained in detail. The patient and/or caregivers have received these instruction. The patient/and or caregivers are aware that any significant change in condition or worsening of symptoms should prompt an immediate return to this or the closest emergency department or call 911. Prescriptions: Ketorolac Trometh 10 mg Tab [TORAdol 10 MG TABLET] 10 mg PO TID 5 Days #15 tablet
[2022-11-01] MEDS ORDERED: Ketamine HCl 50 MG/ML IV ONE (15:02)
[2022-11-01 15:14] VITALS: BP 131/91
[2022-11-01 15:39] LABS: ALBUMIN 4.3 g/dL (3.5-5.0); ALKALINE PHOSPHATASE 49 U/L (38-126); ANION GAP 14.2 MEQ/L (5-15); BLOOD UREA NITROGEN 6 mg/dL (9-20); CHLORIDE 104 mmol/L (98-107); Calcium 8.8 mg/dL (8.4-10.2); Carbon Dioxide 25 mmol/L (22-30); Creatinine 1 0.63 mg/dL (0.66-1.25); EST GLOMERULAR FILTRATION RATE > 60.0 ML/MIN; Glucose 102 mg/dL (74-106); Potassium 3.9 mmol/L (3.5-5.1); SGOT/AST 24 U/L (17-59); SGPT/ALT 14 U/L (0-50); SODIUM 139 mmol/L (137-145); Total Protein 6.6 g/dL (6.3-8.2)
[2022-11-01 16:08] LABS: Barbiturate,Urine NEGATIVE (NEGATIVE); Benzodiazepine,Urine NEGATIVE (NEGATIVE); Cocaine,Urine NEGATIVE (NEGATIVE); Methadone,Urine NEGATIVE (NEGATIVE); Opiate,Urine NEGATIVE (NEGATIVE); PCP,Urine NEGATIVE (NEGATIVE); THC,Urine NEGATIVE (NEGATIVE)
[2022-11-01 16:13] LABS: Appearance Cloudy (Clear); Bacteria None Seen /HPF (None Seen); Bilirubin Negative (Negative); Blood Large (Negative); Epithelial Cells None Seen /HPF (None Seen); Glucose, Urine Negative (Negative); Ketones 80 (Negative); Leukocyte Esterase Negative (Negative); Nitrite Negative (Negative); Ph 6.5 (4.6-8.0); Protein,Urine Dip 30 (Negative); RBC 21-50 /HPF (0-5); WBC 0-2 /HPF (0-5)
[2022-11-01 16:14] LABS: ADD URINE CULTURE? YES (NO); Sperm Moderate /HPF (None Seen)
[2022-11-01 16:36] LABS: Amphetamine,Urine POSITIVE (NEGATIVE)
[2022-11-01 16:57] VITALS: PULSE 80
[2022-11-01 16:58] VITALS: O2SAT 95
== END 2022-11-01 17:00 | disposition home or self-care (01) ==
LOC: ED 12:53
DX: N13.2 Hydronephrosis with renal and ureteral calculous obstruction (principal); N13.4 Hydroureter; N21.0 Calculus in bladder; N04.9 Nephrotic syndrome with unspecified morphologic changes; D72.829 Elevated white blood cell count, unspecified; E87.20 Acidosis, unspecified; F15.90 Other stimulant use, unspecified, uncomplicated; R10.9 Unspecified abdominal pain; Z79.891 Long term (current) use of opiate analgesic; Z79.899 Other long term (current) drug therapy; Z28.310 Unvaccinated for COVID-19; Z72.0 Tobacco use
CPT/HCPCS: 36000; 36415; 74176; 80053; 80307; 81001; 82360; 83605; 83690; 85025; 87086; 96360; 96361; 96374; 96375; 99284; J1885; J2405

== ENCOUNTER 2024-01-22 09:47 | Emergency (ER) | payer OTHER ==
[2024-01-22] MEDS ORDERED: Sodium Chloride 0.9% 1000 ML 1,000 ML ONE (10:00)
[2024-01-22] MEDS ORDERED: Zofran 4 MG/2 ML VIAL ONE (10:00)
[2024-01-22] MEDS ORDERED: TORAdol 30 mg Injection ONE (10:00)
[2024-01-22] MEDS: TORAdol 30 mg Injection IV ONE (10:01)
[2024-01-22] MEDS: Sodium Chloride 0.9% 1000 ML 1,000 ML IV STA (10:01)
--- NOTE | 2024-01-22 10:01 | ERPHSYRPT ---
- History of Present Illness Time Seen by Provider: 01/22/24 09:59 Source: patient Exam Limitations: no limitations Patient Subjective Stated Complaint: Pt c/o of right sided flank pain Triage Nursing Assessment: Pt was brought to the ER by his fiance, hypertensive, rates pain as 10/10 in the right flank, appears to be in significant pain, pulses normal, diaphoretic, unable to obtain a temp at this time, hx of kidney stones Physician History: Patient is a 33-year-old male presents to our ED with acute onset of right-sided flank pain. Patient has a history of kidney stone. Patient states pain is similar. Pain started just prior to arrival. Pain is localized to the right flank. Patient rates his pain 10 out of 10. No gross hematuria. No trauma no fever. Symptoms are moderate to severe in intensity. No specific worsening improving factors. Patient voices no other complaints or concerns at this time. Portions of this note were created with voice recognition technology. There may be grammatical, spelling, punctuation or sound alike errors Timing/Duration: today Severity: moderate Modifying Factors: Improves With: nothing Associated Symptoms: denies symptoms Allergies/Adverse Reactions: amoxicillin Allergy (Verified 01/22/24 09:58) Penicillins Allergy (Verified 01/22/24 09:58) Hx Tetanus, Diphtheria Vaccination/Date Given: Yes Hx Influenza Vaccination/Date Given: No Hx Pneumococcal Vaccination/Date Given: No Travel Risk - International Travel Have you traveled outside of the country in past 3 weeks: No - Emerging Infectious Disease Are you exhibiting symptoms associated with any current EIDs: No - Review of Systems Constitutional: No Symptoms, No Fever, No Chills Eyes: No Symptoms Ears, Nose, & Throat: No Symptoms Respiratory: No Symptoms, No Cough, No Dyspnea Cardiac: No Symptoms, No Chest Pain, No Edema, No Syncope Abdominal/Gastrointestinal: No Symptoms, No Abdominal Pain, No Nausea, No Vomiting, No Diarrhea Genitourinary Symptoms: No Symptoms, No Dysuria Musculoskeletal: No Symptoms, No Back Pain, No Neck Pain Skin: No Symptoms, No Rash Neurological: No Symptoms, No Dizziness, No Focal Weakness, No Sensory Changes Psychological: No Symptoms Endocrine: No Symptoms Hematologic/Lymphatic: No Symptoms Immunological/Allergic: No Symptoms All Other Systems: Reviewed and Negative - Past Medical History Pertinent Past Medical History: Yes Neurological History: No Pertinent History ENT History: No Pertinent History Cardiac History: No Pertinent History Respiratory History: No Pertinent History Endocrine Medical History: No Pertinent History Musculoskeletal History: No Pertinent History GI Medical History: No Pertinent History History: No Pertinent History Psycho-Social History: No Pertinent History Male Reproductive Disorders: No Pertinent History Other Medical History: hx of kidney stones - Past Surgical History Past Surgical History: Yes Neuro Surgical History: Other Cardiac: No Pertinent History Respiratory: No Pertinent History Gastrointestinal: No Pertinent History Genitourinary: No Pertinent History Musculoskeletal: No Pertinent History Male Surgical History: No Pertinent History Other Surgical History: brain surgery at 2 - Social History Smoking Status: Current every day smoker How long have you smoked: years Exposure to second hand smoke: Yes Drug Use: marijuana Patient Lives Alone: No - Nursing Vital Signs Nursing Vital Signs: Initial Vital Signs Pulse Rate 116 H 01/22/24 09:51 Blood Pressure 164/108 01/22/24 09:51 O2 Sat by Pulse Oximetry 96 01/22/24 09:51 Pain Scale Pain Intensity 7 - Physical Exam General Appearance: no apparent distress, alert Eye Exam: PERRL/EOMI, eyes nml inspection Ears, Nose, Throat Exam: normal ENT inspection, TMs normal, pharynx normal, moist mucous membranes Neck Exam: normal inspection, non-tender, supple, full range of motion Respiratory Exam: normal breath sounds, lungs clear, No respiratory distress Cardiovascular Exam: regular rate/rhythm, normal heart sounds, normal peripheral pulses Gastrointestinal/Abdomen Exam: soft, normal bowel sounds, No tenderness, No mass Back Exam: normal inspection, normal range of motion, No CVA tenderness, No vertebral tenderness Extremity Exam: normal inspection, normal range of motion, pelvis stable Neurologic Exam: alert, oriented x 3, cooperative, normal mood/affect, sensation nml, No motor deficits Skin Exam: normal color, warm, dry, No rash Lymphatic Exam: No adenopathy SpO2 Interpretation: normal SpO2: 96 O2 Delivery: Room Air - Course Nursing assessment & vital signs reviewed: Yes - CT Exams Abdomen/Pelvis CT Interpretation: Tele-radiologist Report (Lung granuloma colonic fecal debris, two 3 mm calculi at right UVJ with right hydronephrosis. Right nephrolithiasis) Ordered Tests: Active Orders 24 hr Category Date Time Status IV Insertion STAT Care 01/22/24 09:57 Active ABDOMEN AND PELVIS W/0 CONTRAS [CT] Stat Exams 01/22/24 09:58 Completed CBC W DIFF Stat Lab 01/22/24 10:05 Completed CMP Stat Lab 01/22/24 10:05 Completed CULTURE,URINE Stat Lab 01/22/24 10:07 Received TROPONIN Q4H Lab 01/22/24 10:05 Completed TROPONIN Q4H Lab 01/22/24 14:00 Ordered TROPONIN Q4H Lab 01/22/24 18:00 Ordered UA W/RFX UR CULTURE Stat Lab 01/22/24 10:07 Completed Medication Summary Discontinued Medications Generic Name Dose Route Start Last Admin Trade Name Trever PRN Reason Stop Dose Admin Sodium Chloride 1,000 mls @ 999 mls/hr 01/22/24 09:57 01/22/24 11:29 Sodium Chloride 0.9% 1000 Ml IV 01/22/24 10:57 Infused .Q1H1M STA Infusion Sodium Chloride Confirm 01/22/24 10:00 Sodium Chloride 0.9% 1000 Ml Administered 01/22/24 10:01 Dose 1,000 mls @ ud .ROUTE .STK-MED ONE Ceftriaxone Sodium Confirm 01/22/24 12:03 Rocephin 1 Gm / 100 Ml Nacl Administered 01/22/24 12:04 Dose 1 gm in 100 mls @ ud IV .STK-MED ONE Ketorolac Tromethamine 30 mg 01/22/24 09:57 01/22/24 10:01 Ketorolac Tromethamine 30 Mg/Ml Inj IV 01/22/24 09:58 30 mg STAT ONE Administration Ketorolac Tromethamine Confirm 01/22/24 10:00 Ketorolac Tromethamine 30 Mg/Ml Inj Administered 01/22/24 10:01 Dose 30 mg .ROUTE .STK-MED ONE Morphine Sulfate 2 mg 01/22/24 10:57 01/22/24 11:14 Morphine Sulfate 2 Mg/Ml Inj IV 01/22/24 10:58 2 mg STAT ONE Administration Morphine Sulfate Confirm 01/22/24 11:07 Morphine Sulfate 2 Mg/Ml Inj Administered 01/22/24 11:08 Dose 2 mg .ROUTE .STK-MED ONE Morphine Sulfate 4 mg 01/22/24 11:35 01/22/24 11:52 Morphine Sulfate 4 Mg/Ml Injection IV 01/22/24 11:36 4 mg STAT ONE Administration Morphine Sulfate Confirm 01/22/24 11:51 Morphine Sulfate 4 Mg/Ml Injection Administered 01/22/24 11:52 Dose 4 mg .ROUTE .STK-MED ONE Ondansetron HCl 4 mg 01/22/24 10:01 01/22/24 10:02 Ondansetron Hcl 4 Mg/2 Ml Vial IV 01/22/24 10:02 4 mg STAT ONE Administration Ondansetron HCl Confirm 01/22/24 10:00 Ondansetron Hcl 4 Mg/2 Ml Vial Administered 01/22/24 10:01 Dose 4 mg .ROUTE .STK-MED ONE Lab/Rad Data: Laboratory Result Diagrams 01/22/24 10:05 01/22/24 10:05 Laboratory Results 01/22/24 01/22/24 01/22/24 Range/Units 10:07 10:05 10:05 WBC (4.0-10.5) x10^3/uL RBC (4.1-5.6) x10^6/uL Hgb (12.5-18.0) g/dL Hct (42-50) % MCV (78-100) fL MCH (26-32) pg MCHC (32-36) g/dL RDW (11.5-14.0) % Plt Count (150-450) x10^3/uL MPV (7.5-11.0) fL Gran % (36.0-66.0) % Immature Gran % (Auto) (0.00-0.4) % Nucleat RBC Rel Count (0.00-0.1) % Eos # (Auto) (0-0.5) x10^3/uL Immature Gran # (Auto) (0.00-0.03) x10^3u/L Absolute Lymphs (auto) (1.0-4.6) x10^3/uL Absolute Monos (auto) (0.0-1.3) x10^3/uL Absolute Nucleated RBC (0.00-0.01) x10^3u/L Lymphocytes % (24.0-44.0) % Monocytes % (0.0-12.0) % Eosinophils % (0.00-5.0) % Basophils % (0.0-0.4) % Absolute Granulocytes (1.4-6.9) x10^3/uL Basophils # (0-0.4) x10^3/uL Sodium 138 (135-145) mmol/L Potassium 3.9 (3.5-5.1) mmol/L Chloride 103 (98-107) mmol/L Carbon Dioxide 20 L (22-30) mmol/L Anion Gap 18.4 H (5-15) MEQ/L BUN 15 (9-20) mg/dL Creatinine 1.08 (0.66-1.25) mg/dL Estimated GFR 92.4 ML/MIN Glucose 125 H (74-106) mg/dL Calcium 9.7 (8.4-10.2) mg/dL Total Bilirubin 0.60 (0.2-1.3) mg/dL AST 39 (17-59) U/L ALT 34 (0-50) U/L Alkaline Phosphatase 77 (38-126) U/L Troponin I < 0.012 (0.000-0.033) ng/mL Serum Total Protein 8.4 H (6.3-8.2) g/dL Albumin 5.1 H (3.5-5.0) g/dL Urine Color Dark Yellow (Yellow) Urine Appearance Turbid A (Clear) Urine pH 5.5 (4.6-8.0) Ur Specific [place] >=1.030 A (1.005-1.030) Urine Protein 100 A (Negative) Urine Glucose (UA) Negative (Negative) mg/dL Urine Ketones 15 A (Negative) Urine Blood Small A (Negative) Urine Nitrite Negative (Negative) Urine Bilirubin Moderate A (Negative) Urine Urobilinogen 1.0 A (0.2) mg/dL Ur Leukocyte Esterase Trace A (Negative) U Hyaline Cast (Auto) 3-5 A (0-2) /LPF Urine Microscopic RBC 11-20 A (0-5) /HPF Urine Microscopic WBC 6-10 A (0-5) /HPF Ur Epithelial Cells None Seen (None Seen) /HPF Urine Bacteria None Seen (None Seen) /HPF Urine Culture Reflexed YES (NO) 01/22/24 Range/Units 10:05 WBC 15.1 H (4.0-10.5) x10^3/uL RBC 6.35 H (4.1-5.6) x10^6/uL Hgb 18.3 H (12.5-18.0) g/dL Hct 54.2 H (42-50) % MCV 85.4 (78-100) fL MCH 28.8 (26-32) pg MCHC 33.8 (32-36) g/dL RDW 12.8 (11.5-14.0) % Plt Count 439 (150-450) x10^3/uL MPV 9.5 (7.5-11.0) fL Gran % 57.6 (36.0-66.0) % Immature Gran % (Auto) 0.4 (0.00-0.4) % Nucleat RBC Rel Count 0.0 (0.00-0.1) % Eos # (Auto) 0.36 (0-0.5) x10^3/uL Immature Gran # (Auto) 0.06 H (0.00-0.03) x10^3u/L Absolute Lymphs (auto) 4.55 (1.0-4.6) x10^3/uL Absolute Monos (auto) 1.31 H (0.0-1.3) x10^3/uL Absolute Nucleated RBC 0.00 (0.00-0.01) x10^3u/L Lymphocytes % 30.2 (24.0-44.0) % Monocytes % 8.7 (0.0-12.0) % Eosinophils % 2.4 (0.00-5.0) % Basophils % 0.7 (0.0-0.4) % Absolute Granulocytes 8.70 H (1.4-6.9) x10^3/uL Basophils # 0.10 (0-0.4) x10^3/uL Sodium (135-145) mmol/L Potassium (3.5-5.1) mmol/L Chloride (98-107) mmol/L Carbon Dioxide (22-30) mmol/L Anion Gap (5-15) MEQ/L BUN (9-20) mg/dL Creatinine (0.66-1.25) mg/dL Estimated GFR ML/MIN Glucose (74-106) mg/dL Calcium (8.4-10.2) mg/dL Total Bilirubin (0.2-1.3) mg/dL AST (17-59) U/L ALT (0-50) U/L Alkaline Phosphatase (38-126) U/L Troponin I (0.000-0.033) ng/mL Serum Total Protein (6.3-8.2) g/dL Albumin (3.5-5.0) g/dL Urine Color (Yellow) Urine Appearance (Clear) Urine pH (4.6-8.0) Ur Specific [place] (1.005-1.030) Urine Protein (Negative) Urine Glucose (UA) (Negative) mg/dL Urine Ketones (Negative) Urine Blood (Negative) Urine Nitrite (Negative) Urine Bilirubin (Negative) Urine Urobilinogen (0.2) mg/dL Ur Leukocyte Esterase (Negative) U Hyaline Cast (Auto) (0-2) /LPF Urine Microscopic RBC (0-5) /HPF Urine Microscopic WBC (0-5) /HPF Ur Epithelial Cells (None Seen) /HPF Urine Bacteria (None Seen) /HPF Urine Culture Reflexed (NO) - Progress Progress: improved Progress Note: 33-year-old male presents to our ED with acute onset right flank pain. Patient has a history of kidney stones. Patient symptoms of the same. Physical exam reveals right-sided CVA tenderness. Patient appears to be in significant pain. Patient received Toradol and then morphine for pain control. Pain significa ntly improved. CT reveals two 3 mm right UVJ stone with hydronephrosis. Urinalysis suggestive of urinary tract infection. We advised transfer to decompress the involved kidney/removal of obstructing stones. Patient declined. Patient signed AMA form patient is of sound mind. Patient is appropriate to make informed and independent medical decisions. Patient understands that leaving AGAINST MEDICAL ADVICE can result in delayed diagnosis, increased risk of morbidity, mortality, short and long-term disability including . In spite of these risks, patient has decided to leave AGAINST MEDICAL ADVICE. Patient understands that he may return to our ED at any point if he reconsiders. Patient agrees to follow-up with his or her primary care doctor within 48 hours for reevaluation. Patient voices no other complaints or concerns at this time. We will release patient AGAINST MEDICAL ADVICE per their request. Complexity problem addressed is moderate acute complicated No critical care time Complex of data reviewed and analyzed is moderate. Test ordered test reviewed results analyzed and correlated clinically with history and physical exam. Risk of complication and or risk morbidity/mortality patient management is moderate. Prescription for Toradol and tamsulosin forwarded to patient's pharmacy. Patient received an oral dose of Levaquin. A prescription for ciprof loxacin forwarded to patient's pharmacy. We attempted to forward a prescription for [place] however patient is on Suboxone according to data. The prescription for [place] appears to be blocked. Vital stable. Time spent to discharge patient is approximately half hour. No social determinants health present impede follow-up. Portions of this note were created with voice recognition technology. There may be grammatical, spelling, punctuation or sound alike errors Patient will be leaving AGAINST MEDICAL ADVICE 01/22/24 12:15 Counseled pt/family regarding: lab results, diagnosis - Departure Departure Disposition: Home Clinical Impression: Renal colic, Lung granuloma, Colonic fecal debris, Ureterolithiasis, Hydronephrosis, right, Nephrolithiasis, Flank pain Condition: Stable Critical Care Time: No Referrals: LILIANA SMITH [Primary Care Provider] - Follow up/PCP as directed JAZMINE FAUSTIN [COURTESY STAFF] - Follow up/PCP as directed Additional Instructions: Discharge/Care Plan CROW ESCAMILLA ORLANDO was seen on 01/22/24 in the Emergency Room. The patient was counseled regarding Diagnosis,Lab results, Imaging studies, need for follow up and when to return to the Emergency Room. Prescriptions given: Discharge Note I have spoken with the patient and/or caregivers. I have explained the patient's condition, diagnosis and treatment plan based on the information available to me at this time. I have answered the patient's and/or caregiver's questions and addressed any concerns. The patient and/or caregivers have as good understanding of the patient's diagnosis, condition and treatment plan as can be expected at this point. The vital signs have been stable. The patient's condition is stable and appropriate for discharge from the emergency department. The patient will pursue further outpatient evaluation with the primary care physician or other designated or consulting physician as outlined in the discharge instructions. The patient and/or caregivers are agreeable to this plan of care and follow-up instructions have been explained in detail. The patient an d/or caregivers have received these instruction. The patient/and or caregivers are aware that any significant change in condition or worsening of symptoms should prompt an immediate return to this or the closest emergency department or call 911. Prescriptions: Ciprofloxacin [Cipro 500 MG] 500 mg PO BID #14 tablet Tamsulosin HCl 0.4 mg [Flomax 0.4 MG] 0.4 mg PO DAILY 10 Days #10 cap Ketorolac Trometh 10 mg Tab [TORAdol 10 MG TABLET] 10 mg PO TID 5 Days #15 tablet
[2024-01-22] MEDS: Zofran 4 MG/2 ML VIAL IV ONE (10:02)
[2024-01-22 10:08] LABS: BASOPHIL % 0.7 % (0.0-0.4); Eosinophil % 2.4 % (0.00-5.0); Eosinophil (Absolute #) 0.36 x10^3/uL (0-0.5); Hematocrit 54.2 % (42-50); Hemoglobin 18.3 g/dL (12.5-18.0); IMMATURE GRAN # 0.06 x10^3u/L (0.00-0.03); IMMATURE GRAN % 0.4 % (0.00-0.4); Lymphocyte (Absolute #) 4.55 x10^3/uL (1.0-4.6); Lymphocytes % 30.2 % (24.0-44.0); Mean Cell Volume 85.4 fL (78-100); Mean Corpuscular Hemoglobin 28.8 pg (26-32); Mean Corpuscular Hgb Concent. 33.8 g/dL (32-36); Mean Platelet Volume 9.5 fL (7.5-11.0); Monocyte (Absolute #) 1.31 x10^3/uL (0.0-1.3); Monocytes % 8.7 % (0.0-12.0); Neutrophil % 57.6 % (36.0-66.0); Platelet Count 439 x10^3/uL (150-450); Red Blood Count 6.35 x10^6/uL (4.1-5.6); Red Cell Distribution Width 12.8 % (11.5-14.0); White Blood Count 15.1 x10^3/uL (4.0-10.5)
[2024-01-22 10:22] LABS: ALBUMIN 5.1 g/dL (3.5-5.0); ANION GAP 18.4 MEQ/L (5-15); BILIRUBIN,TOTAL 0.6 mg/dL (0.2-1.3); Calcium 9.7 mg/dL (8.4-10.2); Creatinine 1 1.08 mg/dL (0.66-1.25); EST GLOMERULAR FILTRATION RATE 92.4 ML/MIN; Potassium 3.9 mmol/L (3.5-5.1); Total Protein 8.4 g/dL (6.3-8.2)
[2024-01-22] MEDS ORDERED: MORPHINE SULFATE 2 MG INJ ONE (11:07)
[2024-01-22] MEDS: MORPHINE SULFATE 2 MG INJ IV ONE (11:14)
--- NOTE | 2024-01-22 11:15 | XRAY ---
Indication: Right flank pain. History kidney stones. Multiple contiguous axial images obtained through the abdomen and pelvis without contrast. Comparison: November 01, 2022 Lung bases again demonstrate a few tiny calcified granulomas bilaterally. No infiltrate or effusion. Heart not enlarged. Noncontrasted stomach and bowel loops appear nonobstructed again with normal appendix. New mild diffuse scattered colonic fecal debris throughout. Distal right ureter now demonstrates 2 [id number] 3 mm calculi just proximal to UVJ. Proximal right ureter is prominent up to 8 mm along with mild hydronephrosis consistent with partial obstructive uropathy. Right kidney demonstrates additional 2 mm calculus. No free fluid/air. Remaining liver, gallbladder, pancreas, spleen, adrenal glands, left kidney, left ureter, bladder, and aorta are unremarkable for noncontrast exam. Osseous structures intact. Impression: 1. Two new distal right ureter micro-calculi producing obstructive uropathy as detailed. Additional right renal punctate calculi. 2. New mild diffuse fecal stasis.
[2024-01-22 11:43] LABS: Appearance Turbid (Clear); Bacteria None Seen /HPF (None Seen); Bilirubin Moderate (Negative); Blood Small (Negative); Epithelial Cells None Seen /HPF (None Seen); Glucose, Urine Negative (Negative); Ketones 15 (Negative); Leukocyte Esterase Trace (Negative); Nitrite Negative (Negative); Ph 5.5 (4.6-8.0); Protein,Urine Dip 100 (Negative); Specific Gravity >=1.030 (1.005-1.030)
[2024-01-22 11:46] LABS: ADD URINE CULTURE? YES (NO)
[2024-01-22] MEDS ORDERED: MORPHINE SULFATE 4 MG INJ ONE (11:51)
[2024-01-22] MEDS: MORPHINE SULFATE 4 MG INJ IV ONE (11:52)
[2024-01-22 11:55] VITALS: BP 149/103; PULSE 97; RESP 20
[2024-01-22] MEDS ORDERED: ROCEPHIN 1 GM / 100 ML NaCl 0 GM/0 ML IVPB IV ONE (12:03)
[2024-01-22 12:04] VITALS: O2SAT 96
[2024-01-22] MEDS ORDERED: Levofloxacin 250MG Tablet ONE (12:08)
[2024-01-22] MEDS: Levofloxacin 250MG Tablet PO ONE (12:10)
== END 2024-01-22 12:15 | disposition left against medical advice (07) ==
LOC: ED 09:47
DX: N13.2 Hydronephrosis with renal and ureteral calculous obstruction (principal); N23 Unspecified renal colic; J84.10 Pulmonary fibrosis, unspecified; R93.3 Abnormal findings on diagnostic imaging of other parts of digestive tract; R10.9 Unspecified abdominal pain; Z72.0 Tobacco use; Z87.442 Personal history of urinary calculi
CPT/HCPCS: 36000; 36415; 74176; 80053; 81001; 84484; 85025; 87086; 96360; 96374; 96375; 99284; J0696; J1885; J2270; J2405; A9270-GY